=== PATIENT | male | born 1975 | race African-American/Black ===

== ENCOUNTER 2016-12-24 01:18 | Emergency (ER) | payer OTHER ==
[2016-12-24 01:32] VITALS: PULSE 88; TEMP 99.3; BMI 46.8
[2016-12-24] MEDS ORDERED: cloNIDine HCL 0.1 MG TABLET ONE (01:57)
[2016-12-24] MEDS ORDERED: cloNIDine HCL 0.1 MG TABLET PO ONE (01:57)
--- NOTE | 2016-12-24 02:01 | PDOC ---
History of Present Illness - General Stated Complaint: NUMBNESS FINGERS/FEET X 3 DAYS Time Seen by Provider: 12/24/16 01:20 - History of Present Illness Initial Comments: This 41-year-old man with a history of morbid obesity and untreated hypertension presents with a few day history of intermittent right arm and right leg numbness/tingling. Patient states that he has been told that he has high blood pressure by physicians for several years with prescription of antihypertensive medications being issued to him. The patient has never taken any of his antihypertensive medications, stating that he has believed in the past that he can control his blood pressure using diet and exercise. Over the last few days he is noted numbness/tingling sensation of his entire right arm and entire right leg lasting several minutes and r resolving spontaneously. These episodes can occur at any time and are not related to position or activity. He denies pain in either extremity or anywhere else on his body. He has not had chest pain or shortness of breath, he denies abdominal pain/nausea. Although the patient states that the right arm/right leg feel "" when the numbness/tingling occurs, he has not had any difficulty with ambulation. Patient states that he most recent appointment with his general medical doctor was in December 2015 (i.e. one year ago) Patient has also been told that he is prediabetic but has not received any medication for this. Strong family history of hypertension. Patient denies smoking, alcohol use, other recreational drug use. No known ALLERGIES Past History - Past Medical History Allergies/Adverse Reactions: Allergies Allergy/AdvReac Type Severity Reaction Status Date / Time No Known Allergies Allergy Verified 12/24/16 01:20 Home Medications: Ambulatory Orders Nifedipine [Nifedipine ER] 30 mg PO DAILY #10 tablet.er 12/24/16 Diabetes: Yes (PRE PER PT) - Psycho/Social/Smoking Cessation Hx Anxiety: No Suicidal Ideation: No Smoking History: Never smoked Have you smoked in the past 12 months: No Information on smoking cessation initiated: No Hx Alcohol Use: No Drug/Substance Use Hx: No Substance Use Type: None Review of Systems - Review of Systems Able to Perform ROS?: Yes Comments:: 12 point review of systems is negative except for what is noted in the history of present illness *Physical Exam - Vital Signs Last Vital Signs Temp Pulse Resp BP Pulse Ox 99.3 F 88 18 230/130 97 12/24/16 01:20 12/24/16 01:20 12/24/16 01:20 12/24/16 01:39 12/24/16 01:20 - Physical Exam Comments: GENERAL:Adult male, morbidly obese, alert and oriented 3 in no acute distress HEAD: Normal with no signs of trauma. EYES: PERRLA, EOMI, sclera anicteric, conjunctiva clear. ENT: Ears normal, nares patent, oropharynx clear without exudates. Dry mucous membranes. NECK: Normal range of motion, supple without lymphadenopathy, JVD, or masses. LUNGS: Breath sounds equal, clear to auscultation bilaterally. No wheezes, and no crackles. HEART:Regular rate and rhythm, normal S1 and S2 without murmur, rub or gallop. ABDOMEN:.normal bowel sounds No guarding,tenderness or rebound.No masses No distention. EXTREMITIES: Normal range of motion, no edema. No clubbing or cyanosis. No erythema, or tenderness. Strongly palpable pulse bilateral radial arteries at the wrist; distal extremities warm and dry with excellent capillary refill Strongly palpable pulse bilateral temporal arteries NEUROLOGICAL: Cranial nerves II through XII grossly intact. Normal speech. Normal gait; no pronator drift No sensory deficits evident MUSCULOSKELETAL: Back non-tender to palpation, no CVA tenderness SKIN: Warm, Dry, normal turgor, no rashes or lesions noted. ED Treatment Course - ADDITIONAL ORDERS Additional order review: Laboratory Results 12/24/16 01:32 POC Glucometer [id number] 12/24/16 01:32 POC Glucometer [id number] Medical Decision Making - Medical Decision Making 12/24/16 02:15 Clonidine 0.2 mg by mouth administered at 01: 58 Although the patient has no neurologic deficit on exam, because of his untreated hypertension and new intermittent neurologic symptoms, noncontrast head CT performed to evaluate for acute intracranial bleed or other process. CT interpreted by Imaging architecture consultant Other than evidence for possible chronic sinusitis, no acute abnormality seen on noncontrast head CT. 12/24/16 03:19 Results discussed with the patient. Since he possibly has had severe hypertension for months (last time pressure was checked was 1 year ago), lowering of blood pressure will be gradual. Approximately 1 hour 15 minutes after clonidine 0.2 milligrams administered, systolic blood pressure has dropped approximately 30 mmHg and diastolic has lowered approximately 10 mmHg. Although this BP is far from ideal, more rapid lowering of blood pressure is not advised. The patient has been strongly advised to follow-up with his general medical doctor (practices in the [place]). Patient states that he does not need a referral for a new doctor and he will follow-up since he is concerned that he is now having some symptoms. He states he has made an appointment with his general medical doctor for ThursdayDecember 30. Patient has been advised to call the office tomorrow and explain that he has been seen in the ER with new symptoms (and to request that the appointment be made sooner than the ) Meanwhile, nifedipine ER 30 mg daily will be prescribed. He should not work tomorrow; next scheduled work day is October 28. He should return here or see nearest ER if he experiences persistent limb weakness/numbness, chest pain, shortness of breath, severe headache *DC/Admit/Observation/Transfer Diagnosis at time of Disposition: Hypertension Qualifiers: Hypertension type: essential hypertension Qualified Code(s): I10 - Essential ( primary) hypertension Peripheral neuropathy Qualifiers: Peripheral neuropathy type: polyneuropathy, unspecified Qualified Code(s): G62.9 - Polyneuropathy, unspecified - Discharge Dispostion Disposition: HOME Condition at time of disposition: Stable - Prescriptions Prescriptions: Nifedipine [Nifedipine ER] 30 mg PO DAILY #10 tablet.er - Patient Instructions Printed Discharge Instructions: Peripheral Neuropathy, High Blood Pressure Additional Instructions: Nifedipine ER 30 mg daily until seen by your doctor No work tomorrow Call your doctor's office tomorrow as discussed If appointment cannot be moved up, see MD on December 30 as scheduled Follow-up with neurology appointment as per your general doctor Return here or see nearest medical facility if you have severe headache/ persistent numbness/weakness/chest pain - Post Discharge Activity Work/School Note: Back to Work
[2016-12-24 03:12] VITALS: BP 202/123
== END 2016-12-24 03:15 | disposition home or self-care (01) ==
LOC: FER 01:18
DX: I10 Essential (primary) hypertension (principal); G62.9 Polyneuropathy, unspecified; E66.01 Morbid (severe) obesity due to excess calories; Z68.42 Body mass index [BMI] 45.0-49.9, adult
CPT/HCPCS: 70450-TC; 99281-25

== ENCOUNTER 2017-09-21 11:41 | Emergency (ER) | payer OTHER ==
[2017-09-21 11:53] VITALS: TEMP 98
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
[2017-09-21] MEDS ORDERED: LABETALOL HCL 200 MG TABLET (FP) PO ONE (12:15)
[2017-09-21 13:31] VITALS: BP 191/104; PULSE 69
== END 2017-09-21 13:59 | disposition home or self-care (01) ==
LOC: FER 11:41
DX: F41.9 Anxiety disorder, unspecified (principal); I10 Essential (primary) hypertension
CPT/HCPCS: 99282-25

== ENCOUNTER 2017-11-13 12:37 | Emergency (ER) | payer OTHER ==
[2017-11-13 12:42] VITALS: TEMP 98.9; BMI 41.5
[2017-11-13] MEDS ORDERED: LABETALOL HCL 200 MG TABLET (FP) PO ONE (12:45)
[2017-11-13] MEDS ORDERED: HYDROCHLOROTHIAZIDE 25 MG TABLET (FP) ONE (13:01)
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
[2017-11-13] MEDS ORDERED: ACETAMINOPHEN 500 MG TABLET (FP) ONE (13:14)
[2017-11-13] MEDS ORDERED: ACETAMINOPHEN 500 MG TABLET (FP) PO ONE (13:16)
[2017-11-13 16:20] VITALS: BP 178/81; PULSE 79
[2017-11-14] MEDS ORDERED: HYDROCHLOROTHIAZIDE 12.5 MG CAPSULE (FP) PO ONE (12:46)
== END 2017-11-13 16:15 | disposition home or self-care (01) ==
LOC: FER 12:37
DX: I10 Essential (primary) hypertension (principal); R73.03 Prediabetes; E66.9 Obesity, unspecified; Z68.41 Body mass index [BMI] 40.0-44.9, adult; Z91.14 Patient's other noncompliance with medication regimen
CPT/HCPCS: 70450-TC; 99283-25

== ENCOUNTER 2019-11-22 09:57 | Inpatient (IN) | payer OTHER ==
[2019-11-22] MEDS ORDERED: ACETAMINOPHEN 500 MG TABLET (FP) ONE (10:10)
[2019-11-22] MEDS ORDERED: ACETAMINOPHEN 500 MG TABLET (FP) PO ONE ×2 (10:12→10:27)
[2019-11-22 10:27] VITALS: BMI 44.4
[2019-11-22 12:05] LABS: BASO % 0.1 % (0-2.0); EOS % 0.1 % (0-4.5); HEMATOCRIT 49.6 % (35.4-49); HEMOGLOBIN 16.3 GM/dl (11.7-16.9); LYMPH % 13.7 % (8-40); MCH 29.8 pg (25.7-33.7); MCHC 32.8 g/dl (32.0-35.9); MEAN CELL VOLUME 90.7 fl (80-96); MEAN PLT VOLUME 11.5 fl (7.5-11.1); MONO % 11.1 % (3.8-10.2); PLATELET COUNT 98 K/MM3 (134-434); RBC 5.47 M/mm3 (4.00-5.60); RDW 11.9 % (11.9-15.9); WHITE BLOOD COUNT 6.3 K/mm3 (4.0-10.8)
[2019-11-22 12:16] LABS: ALBUMIN 3.3 g/dl (3.4-5.0); BILIRUBIN,DIRECT 0.4 mg/dL (0.0-0.2); BILIRUBIN,TOTAL 1.6 mg/dl (0.2-1); CALCIUM 8.2 mg/dl (8.5-10); CREATININE 1.9 mg/dl (0.55-1.3); POTASSIUM 3.2 mmol/L (3.5-5.1); TOT PROT 7.6 g/dl (6.4-8.2)
[2019-11-22 12:26] LABS: ACTIVATED PTT 31.6 SECONDS (25.2-36.5)
[2019-11-22] MEDS ORDERED: ASPIRIN 81 MG CHEWABLE TABLETS PO ONE (12:28)
[2019-11-22 12:31] LABS: INR 1.42 (0.82-1.09); PROTHROMBIN TIME (PATIENT) 15.8 SEC (10.2-13.0)
[2019-11-22] MEDS ORDERED: SODIUM CHLORIDE 500 ML IV STA (12:31)
[2019-11-22] MEDS ORDERED: ASPIRIN 81 MG CHEWABLE TABLETS ONE (12:33)
[2019-11-22] MEDS ORDERED: ATORVASTATIN CA 20 MG TABLET (FP) PO ONE (12:45)
[2019-11-22] MEDS ORDERED: HEPARIN INFUSION - 25,000 UNITS/500 ML INFUS.BAG IVPB SCH (12:45)
[2019-11-22] MEDS ORDERED: CLOPIDOGREL BISULFATE 300 MG TABLET PO ONE (12:45)
[2019-11-22] MEDS ORDERED: HEPARIN NA (PORCINE) 5,000 UNITS/ML 1ML VIAL IVPUSH PRN ×2 (12:45)
[2019-11-22] MEDS ORDERED: HEPARIN NA (PORCINE) 5,000 UNITS/ML 1ML VIAL IVPUSH ONE (13:09)
[2019-11-22] MEDS ORDERED: ATORVASTATIN CA 20 MG TABLET (FP) ONE (13:15)
[2019-11-22] MEDS ORDERED: HEPARIN NA (PORCINE) 5,000 UNITS/ML 1ML VIAL ONE (13:15)
[2019-11-22] MEDS ORDERED: LABETALOL HCL 5 MG/1 ML (100MG/20 ML VIAL) IVPUSH ONE ×2 (13:15→21:14)
[2019-11-22] MEDS ORDERED: LABETALOL HCL 5 MG/1 ML (100MG/20 ML VIAL) ONE (13:15)
[2019-11-22] MEDS ORDERED: CLOPIDOGREL BISULFATE 300 MG TABLET ONE (13:15)
[2019-11-22] MEDS ORDERED: HEPARIN INFUSION - 25,000 UNITS/500 ML INFUS.BAG IVPB ONE (13:15)
[2019-11-22] MEDS ORDERED: ACETAMINOPHEN 325 MG TABLET (FP) PO PRN (21:15)
[2019-11-22] MEDS ORDERED: ALBUTEROL SO4 HFA INHALER IH PRN (22:10)
[2019-11-22] MEDS ORDERED: guaiFENesin/D-M SUGAR-FREE/ACLHOL-FREE 118 ML BOTTLE PO PRN (22:10)
[2019-11-22] MEDS ORDERED: BENZOCAINE/MENTH/CETYLPYRD CL 1 EACH LOZENGE MM PRN (22:10)
[2019-11-22] MEDS ORDERED: AZITHROMYCIN 250 MG TABLET PO ONE (22:15)
[2019-11-22] MEDS: KCL 10 MEQ IVPB 10 MEQ/100 ML INFUS.BAG IVPB SCH (23:38)
[2019-11-22] MEDS ORDERED: NITROGLYCERIN SUBLINGUAL 1/150 0.4 MG TAB SL PRN (23:45)
[2019-11-22] MEDS ORDERED: LISINOPRIL 5 MG TABLET PO ONE (23:52)
[2019-11-23] MEDS: KCL 10 MEQ IVPB 10 MEQ/100 ML INFUS.BAG IVPB SCH ×2 (04:10→07:00)
[2019-11-23] MEDS ORDERED: CARVEDILOL 25 MG TABLET (FP) PO ONE (04:28)
[2019-11-23] MEDS ORDERED: amLODIPine BESYLATE 10 MG TABLET (FP) PO ONE (04:29)
[2019-11-23 07:47] LABS: HEMATOCRIT 43.9 % (35.4-49); HEMOGLOBIN 15.2 GM/dL (11.7-16.9); MCH 31.1 pg (25.7-33.7); MCHC 34.6 g/dl (32.0-35.9); MEAN CELL VOLUME 90.1 fl (80-96); MEAN PLT VOLUME 10.4 fl (7.5-11.1); PLATELET COUNT 98 K/MM3 (134-434); RBC 4.87 M/mm3 (4.00-5.60); RDW 13.2 % (11.9-15.9)
[2019-11-23 08:01] LABS: WHITE BLOOD COUNT 14.2 K/mm3 (4.0-10.0)
[2019-11-23 08:04] LABS: INR 1.53 (0.83-1.09); PROTHROMBIN TIME (PATIENT) 18.1 SEC (9.7-13.0)
[2019-11-23 09:42] LABS: ALBUMIN 2.5 g/dl (3.4-5.0); ALK PHOS 35 U/L (45-117); ANION GAP 13 MMOL/L (8-16); BILIRUBIN,TOTAL 1.1 mg/dL (0.2-1); BLOOD UREA NITROGEN 44.4 mg/dL (7-18); CALCIUM 7.3 mg/dL (8.5-10.1); CHLORIDE 95 mmol/L (98-107); CHOLESTEROL 88 mg/dL (50-200); CO2 24 mmol/L (21-32); CREATININE 2.4 mg/dL (0.55-1.3); GLUCOSE,RANDOM 110 mg/dL (74-106); HDL CHOLESTEROL 26 mg/dL (40-60); LDH 950 U/L (87-246); LDL CHOLESTEROL (ONLY SJRH) 54 mg/dL (5-100); MAGNESIUM 2.2 mg/dL (1.8-2.4); PHOSPHOROUS 5.5 mg/dL (2.5-4.9); POTASSIUM 4.7 mmol/L (3.5-5.1); SGOT/AST 165 U/L (15-37); SGPT/ALT 77 U/L (13-61); SODIUM 132 mmol/L (136-145); TOT PROT 6.9 g/dl (6.4-8.2); TRIGLYCERIDES 92 mg/dL (0-150)
[2019-11-23] MEDS ORDERED: CARVEDILOL 12.5 MG TABLET (FP) PO SCH ×2 (10:00)
[2019-11-23] MEDS ORDERED: HYDROXYCHLOROQUINE SO4 200 MG TABLET (FP) PO SCH ×4 (10:00→22:00)
[2019-11-23] MEDS ORDERED: LISINOPRIL 5 MG TABLET PO SCH (10:00)
[2019-11-23] MEDS: CARVEDILOL 12.5 MG TABLET (FP) PO SCH (10:01)
[2019-11-23] MEDS: CLOPIDOGREL BISULFATE 75 MG TABLET (FP) PO SCH (10:01)
[2019-11-23] MEDS: ISOSORBIDE MONONITRATE 30 MG TAB.SR.24H (FP) PO SCH (10:02)
[2019-11-23] MEDS: ASPIRIN 81 MG CHEWABLE TABLETS PO SCH (10:03)
[2019-11-23 11:08] LABS: ACTIVATED PTT 98.2 SECONDS (25.2-36.5)
[2019-11-23] MEDS ORDERED: SODIUM CHLORIDE 250 ML IV STA (11:46)
[2019-11-23] MEDS ORDERED: HEPARIN NA (PORCINE) 5,000 UNITS/ML 1ML VIAL SQ SCH (14:00)
[2019-11-23] MEDS ORDERED: DEXTROSE 5%-WATER - 1,000 ML IV SCH ×2 (14:00→14:03)
[2019-11-23 14:28] LABS: ANISOCYTOSIS 0; MACROCYTOSIS 0; PLATELET ESTIMATE DECREASED
[2019-11-23] MEDS: ZINC SULFATE 220 MG CAPSULE (FP) PO SCH ×2 (14:55→23:12)
[2019-11-23] MEDS: ASCORBIC ACID 500 MG TABLET (FP) PO SCH ×2 (14:56→23:12)
[2019-11-23] MEDS ORDERED: SUCCINYLCHOLINE CHLORIDE 200 MG/10 ML VIAL IVPUSH ONE (15:44)
[2019-11-23] MEDS ORDERED: PROPOFOL 200 MG/20 ML VIAL IVPUSH ONE (15:44)
[2019-11-23] MEDS ORDERED: PROPOFOL 1,000,000 MCG/100 ML VIAL ONE (16:13)
[2019-11-23] MEDS ORDERED: fentaNYL CITRATE 250 MCG/5 ML VIAL ONE ×2 (16:21→20:38)
[2019-11-23] MEDS ORDERED: MIDAZOLAM IN 0.9 % SOD.CHLORID 1 MG/1 ML PLAST..BAG ONE (16:37)
[2019-11-23] MEDS ORDERED: SODIUM CHLORIDE 0.45% 1,000 ML IV SCH (16:45)
[2019-11-23] MEDS: PROPOFOL 1,000,000 MCG/100 ML VIAL IVPB SCH (17:30)
[2019-11-23] MEDS: MIDAZOLAM IN 0.9 % SOD.CHLORID 100 MG/100 ML PLAST..BAG IVPB SCH (17:31)
[2019-11-23] MEDS ORDERED: DEXTROSE 5%-WATER 100 ML IVPB ONE (18:11)
[2019-11-23 18:19] LABS: ARTERIAL BLD GAS O2 SATURATION 98.7 % (95-98); ARTERIAL BLOOD GAS BASE EXCESS 2.7 mmol/L (-2-2); ARTERIAL BLOOD GAS PCO2 54.6 mmHg (35-45); ARTERIAL BLOOD GAS PO2 198 mmHg (80-100); ARTERIAL BLOOD GAS pH 7.35 (7.35-7.45)
[2019-11-23 18:20] LABS: ALLENS TEST POSITIVE
[2019-11-23] MEDS: CEFTRIAXONE 2 GM in DEXTROSE 5%-WATER 100 ML IVPB SCH (19:24)
[2019-11-23] MEDS: MORPHINE SULFATE/0.9% NACL/PF 100 MG/100 ML BAG IVPB SCH (19:34)
[2019-11-23] MEDS ORDERED: FENTANYL IVPB 500 MCG/100 ML BAG IVPB SCH (19:45)
[2019-11-23 22:13] LABS: BLOOD UREA NITROGEN 53.6 mg/dL (7-18); CALCIUM 8.1 mg/dL (8.5-10.1); CREATININE 3.5 mg/dL (0.55-1.3); POTASSIUM 3.7 mmol/L (3.5-5.1)
[2019-11-23] MEDS: ATORVASTATIN CA 40 MG TABLET (FP) PO SCH (23:12)
[2019-11-23] MEDS: MUPIROCIN 2% TOPICAL OINTMENT FOR DECOLONIZATION NS SCH (23:12)
[2019-11-23] MEDS: CHLORHEXIDINE GLUCONATE 4% CLEANSER FOR DECOLONIZATION TP SCH (23:13)
[2019-11-24] MEDS: CARVEDILOL 12.5 MG TABLET (FP) PO SCH ×3 (00:23→21:12)
[2019-11-24] MEDS: HEPARIN NA (PORCINE) 5,000 UNITS/ML 1ML VIAL SQ SCH ×4 (00:24→21:13)
[2019-11-24] MEDS ORDERED: fentaNYL CITRATE 250 MCG/5 ML VIAL ONE ×3 (02:18→15:54)
[2019-11-24 08:01] LABS: ARTERIAL BLD GAS O2 SATURATION 98.8 % (95-98); ARTERIAL BLOOD GAS BASE EXCESS 1.3 mmol/L (-2-2); ARTERIAL BLOOD GAS PCO2 50.1 mmHg (35-45); ARTERIAL BLOOD GAS PO2 185 mmHg (80-100); ARTERIAL BLOOD GAS pH 7.35 (7.35-7.45)
[2019-11-24 08:18] LABS: EPI CELLS 1 /uL (0-25.1); HYALINE CASTS 0 /uL (0-3.1); URINE APPEARANCE CLEAR; URINE BACTERIA 4 /uL (0-1359); URINE BILIRUBIN NEGATIVE (NEGATIVE); URINE COLOR DK YELLOW; URINE GLUCOSE (UA) NEGATIVE (NEGATIVE); URINE KETONE NEGATIVE (NEGATIVE); URINE LEUK ESTERASE NEGATIVE (NEGATIVE); URINE NITRITE NEGATIVE (NEGATIVE); URINE PROTEIN 2+ (NEGATIVE); URINE RBC 9 /uL (0-23.9); URINE UROBILINOGEN 0.2 mg/dL (0.2-1.0); URINE WBC 0 /uL (0-25.8)
[2019-11-24] MEDS ORDERED: DEXTROSE 5%-WATER 100 ML IVPB ONE (08:40)
[2019-11-24] MEDS: ZINC SULFATE 220 MG CAPSULE (FP) PO SCH ×2 (10:58→21:14)
[2019-11-24] MEDS: HYDROXYCHLOROQUINE SO4 200 MG TABLET (FP) PO SCH ×2 (10:59→21:14)
[2019-11-24] MEDS: ISOSORBIDE MONONITRATE 30 MG TAB.SR.24H (FP) PO SCH (10:59)
[2019-11-24] MEDS: CLOPIDOGREL BISULFATE 75 MG TABLET (FP) PO SCH (10:59)
[2019-11-24] MEDS: CEFTRIAXONE 2 GM in DEXTROSE 5%-WATER 100 ML IVPB SCH (11:01)
[2019-11-24] MEDS: ASCORBIC ACID 500 MG TABLET (FP) PO SCH ×2 (11:02→21:14)
[2019-11-24] MEDS: ASPIRIN 81 MG CHEWABLE TABLETS PO SCH (11:02)
[2019-11-24] MEDS ORDERED: ACETAMINOPHEN 1000 MG/100 ML VIAL (NON FORMULARY) IVPB ONE (12:45)
[2019-11-24] MEDS: MUPIROCIN 2% TOPICAL OINTMENT FOR DECOLONIZATION NS SCH ×2 (13:19→21:12)
[2019-11-24] MEDS: LACTATED RINGERS SOLUTION 1,000 ML/1,000 ML INFUS.BAG IV SCH (15:27)
[2019-11-24] MEDS ORDERED: PROPOFOL 1,000,000 MCG/100 ML VIAL ONE (15:54)
[2019-11-24 16:05] LABS: BASO % 0.3 % (0-2.0); HEMATOCRIT 42.1 % (35.4-49); HEMOGLOBIN 14.1 GM/dL (11.7-16.9); LYMPH % 10.5 % (8-40); MCH 30.6 pg (25.7-33.7); MCHC 33.5 g/dl (32.0-35.9); MEAN CELL VOLUME 91.5 fl (80-96); MONO % 8.8 % (3.8-10.2); NEUT % 80.4 % (42.8-82.8); PLATELET COUNT 163 K/MM3 (134-434); RDW 13.2 % (11.9-15.9); WHITE BLOOD COUNT 9.9 K/mm3 (4.0-10.0)
[2019-11-24 16:38] LABS: ALBUMIN 2.4 g/dl (3.4-5.0); BILIRUBIN,TOTAL 0.4 mg/dL (0.2-1); BLOOD UREA NITROGEN 72.2 mg/dL (7-18); CALCIUM 8.1 mg/dL (8.5-10.1); CREATININE 6.6 mg/dL (0.55-1.3); MAGNESIUM 2.8 mg/dL (1.8-2.4); PHOSPHOROUS 8.9 mg/dL (2.5-4.9); POTASSIUM 3.6 mmol/L (3.5-5.1); TOT PROT 6.5 g/dl (6.4-8.2)
[2019-11-24] MEDS: PROPOFOL 1,000,000 MCG/100 ML VIAL IVPB SCH (20:00)
[2019-11-24] MEDS: MIDAZOLAM IN 0.9 % SOD.CHLORID 100 MG/100 ML PLAST..BAG IVPB SCH (21:12)
[2019-11-24] MEDS: CHLORHEXIDINE GLUCONATE 4% CLEANSER FOR DECOLONIZATION TP SCH (21:13)
[2019-11-24] MEDS: ATORVASTATIN CA 40 MG TABLET (FP) PO SCH (21:13)
[2019-11-25] MEDS ORDERED: ACETAMINOPHEN 650 MG/20.3 ML ORAL SOLUTION (CUPS) PO ONE (04:03)
[2019-11-25] MEDS: PROPOFOL 1,000,000 MCG/100 ML VIAL IVPB SCH ×3 (05:00→15:55)
[2019-11-25] MEDS: MIDAZOLAM IN 0.9 % SOD.CHLORID 100 MG/100 ML PLAST..BAG IVPB SCH (05:00)
[2019-11-25] MEDS: MORPHINE SULFATE/0.9% NACL/PF 100 MG/100 ML BAG IVPB SCH ×4 (05:00→16:41)
[2019-11-25] MEDS: HEPARIN NA (PORCINE) 5,000 UNITS/ML 1ML VIAL SQ SCH (06:00)
[2019-11-25 06:19] LABS: ARTERIAL BLD GAS O2 SATURATION 98.4 % (95-98); ARTERIAL BLOOD GAS BASE EXCESS -0.2 mmol/L (-2-2); ARTERIAL BLOOD GAS PCO2 54.8 mmHg (35-45); ARTERIAL BLOOD GAS PO2 178 mmHg (80-100); ARTERIAL BLOOD GAS pH 7.32 (7.35-7.45)
[2019-11-25 06:20] LABS: ALLENS TEST POSITIVE
[2019-11-25 08:18] LABS: ALBUMIN 2.2 g/dl (3.4-5.0); BILIRUBIN,TOTAL 0.5 mg/dL (0.2-1); BLOOD UREA NITROGEN 82.7 mg/dL (7-18); CALCIUM 7.9 mg/dL (8.5-10.1); MAGNESIUM 2.7 mg/dL (1.8-2.4); POTASSIUM 3.8 mmol/L (3.5-5.1); TOT PROT 6.4 g/dl (6.4-8.2)
[2019-11-25 08:32] LABS: HEMATOCRIT 39.1 % (35.4-49); HEMOGLOBIN 13.5 GM/dL (11.7-16.9); MCH 31.6 pg (25.7-33.7); MCHC 34.4 g/dl (32.0-35.9); MEAN CELL VOLUME 91.7 fl (80-96); MEAN PLT VOLUME 10.7 fl (7.5-11.1); PLATELET COUNT 169 K/MM3 (134-434); RBC 4.26 M/mm3 (4.00-5.60); RDW 13.2 % (11.9-15.9); WHITE BLOOD COUNT 10.9 K/mm3 (4.0-10.0)
[2019-11-25] MEDS ORDERED: DEXTROSE 5%-WATER 100 ML IVPB ONE (09:24)
[2019-11-25] MEDS: ZINC SULFATE 220 MG CAPSULE (FP) PO SCH ×2 (09:32→21:48)
[2019-11-25] MEDS: ASCORBIC ACID 500 MG TABLET (FP) PO SCH ×2 (09:32→21:48)
[2019-11-25] MEDS: ASPIRIN 81 MG CHEWABLE TABLETS PO SCH (09:32)
[2019-11-25] MEDS: CLOPIDOGREL BISULFATE 75 MG TABLET (FP) PO SCH (09:32)
[2019-11-25] MEDS: ISOSORBIDE MONONITRATE 30 MG TAB.SR.24H (FP) PO SCH (09:33)
[2019-11-25] MEDS: CEFTRIAXONE 2 GM in DEXTROSE 5%-WATER 100 ML IVPB SCH (09:33)
[2019-11-25] MEDS: CARVEDILOL 12.5 MG TABLET (FP) PO SCH ×2 (09:33→21:47)
[2019-11-25] MEDS: MUPIROCIN 2% TOPICAL OINTMENT FOR DECOLONIZATION NS SCH ×2 (09:33→21:46)
[2019-11-25 09:43] LABS: CREATININE 8.6 mg/dL (0.55-1.3); PHOSPHOROUS 9.4 mg/dL (2.5-4.9)
[2019-11-25] MEDS: HYDROXYCHLOROQUINE 200 MG/8 ML ORAL SUSPENSION PO SCH ×2 (09:43→21:48)
[2019-11-25] MEDS: LACTATED RINGERS SOLUTION 1,000 ML/1,000 ML INFUS.BAG IV SCH ×3 (13:35→19:09)
[2019-11-25] MEDS: ACETAMINOPHEN 650 MG/20.3 ML ORAL SOLUTION (CUPS) PO PRN (16:45)
[2019-11-25] MEDS ORDERED: PT OWN MED DRAWER 7, Y5N ONE (21:42)
[2019-11-25] MEDS: APIXABAN 5 MG TABLET PO SCH (21:47)
[2019-11-25] MEDS: CHLORHEXIDINE GLUCONATE 4% CLEANSER FOR DECOLONIZATION TP SCH (21:48)
[2019-11-25] MEDS: ATORVASTATIN CA 40 MG TABLET (FP) PO SCH (21:48)
[2019-11-25] MEDS: NOREPINEPHRINE D5W PREMIX 16,000 MCG/500 ML BAG IVPB SCH (22:00)
[2019-11-26] MEDS: ACETAMINOPHEN 650 MG/20.3 ML ORAL SOLUTION (CUPS) PO PRN ×3 (06:15→18:18)
[2019-11-26 07:30] LABS: BASO % 0.2 % (0-2.0); HEMATOCRIT 37.5 % (35.4-49); HEMOGLOBIN 12.3 GM/dL (11.7-16.9); LYMPH % 7.7 % (8-40); MCH 30.2 pg (25.7-33.7); MCHC 32.8 g/dl (32.0-35.9); MEAN PLT VOLUME 9.8 fl (7.5-11.1); MONO % 10.5 % (3.8-10.2); NEUT % 81.6 % (42.8-82.8); PLATELET COUNT 207 K/MM3 (134-434); RBC 4.07 M/mm3 (4.00-5.60); RDW 13.3 % (11.9-15.9); WHITE BLOOD COUNT 13.5 K/mm3 (4.0-10.0)
[2019-11-26 08:07] LABS: ALK PHOS 37 U/L (45-117); ANION GAP 15 MMOL/L (8-16); BILIRUBIN,TOTAL 0.5 mg/dL (0.2-1); CHLORIDE 93 mmol/L (98-107); CO2 25 mmol/L (21-32); GLUCOSE,RANDOM 94 mg/dL (74-106); POTASSIUM 4.3 mmol/L (3.5-5.1); SGOT/AST 132 U/L (15-37); SGPT/ALT 53 U/L (13-61); SODIUM 133 mmol/L (136-145); TOT PROT 6.3 g/dl (6.4-8.2)
[2019-11-26] MEDS ORDERED: POTASSIUM CHLORIDE ORAL LIQUID 20 MEQ/15 ML PO ONE (08:45)
[2019-11-26 09:12] LABS: BLOOD UREA NITROGEN 116.1 mg/dL (7-18)
[2019-11-26 09:13] LABS: CREATININE 12.3 mg/dL (0.55-1.3); PHOSPHOROUS > 9.0 mg/dL (2.5-4.9)
[2019-11-26] MEDS ORDERED: DEXTROSE 5%-WATER 100 ML IVPB ONE (09:15)
[2019-11-26] MEDS: ASPIRIN 81 MG CHEWABLE TABLETS PO SCH (09:24)
[2019-11-26] MEDS: ASCORBIC ACID 500 MG TABLET (FP) PO SCH ×2 (09:24→21:24)
[2019-11-26] MEDS: MUPIROCIN 2% TOPICAL OINTMENT FOR DECOLONIZATION NS SCH ×2 (09:25→21:23)
[2019-11-26] MEDS: CARVEDILOL 12.5 MG TABLET (FP) PO SCH ×2 (09:25→21:23)
[2019-11-26] MEDS: ZINC SULFATE 220 MG CAPSULE (FP) PO SCH ×2 (09:26→22:02)
[2019-11-26] MEDS: ISOSORBIDE MONONITRATE 30 MG TAB.SR.24H (FP) PO SCH (09:26)
[2019-11-26] MEDS: CEFTRIAXONE 2 GM in DEXTROSE 5%-WATER 100 ML IVPB SCH (09:27)
[2019-11-26] MEDS: APIXABAN 5 MG TABLET PO SCH ×2 (09:31→21:23)
[2019-11-26] MEDS: HYDROXYCHLOROQUINE 200 MG/8 ML ORAL SUSPENSION PO SCH ×2 (09:31→21:24)
[2019-11-26] MEDS: PROPOFOL 1,000,000 MCG/100 ML VIAL IVPB SCH ×2 (11:07→15:53)
[2019-11-26] MEDS: LACTATED RINGERS SOLUTION 1,000 ML/1,000 ML INFUS.BAG IV SCH ×2 (12:24→19:02)
[2019-11-26] MEDS ORDERED: SEVELAMER CARBONATE 0.8 GM POWDER PACKET PO ONE (15:06)
[2019-11-26] MEDS ORDERED: PANTOPRAZOLE SODIUM 40 MG VIAL IVPUSH SCH (15:15)
[2019-11-26] MEDS: MORPHINE SULFATE/0.9% NACL/PF 100 MG/100 ML BAG IVPB SCH (16:28)
[2019-11-26] MEDS: NOREPINEPHRINE D5W PREMIX 16,000 MCG/500 ML BAG IVPB SCH (18:31)
[2019-11-26] MEDS ORDERED: ACETAMINOPHEN 1000 MG/100 ML VIAL (NON FORMULARY) IVPB ONE (18:34)
[2019-11-26] MEDS: CHLORHEXIDINE GLUCONATE 4% CLEANSER FOR DECOLONIZATION TP SCH (21:23)
[2019-11-26] MEDS: ATORVASTATIN CA 40 MG TABLET (FP) PO SCH (21:24)
[2019-11-27] MEDS: ACETAMINOPHEN 650 MG/20.3 ML ORAL SOLUTION (CUPS) PO PRN ×2 (01:54→21:24)
[2019-11-27 07:18] LABS: HEMATOCRIT 37.4 % (35.4-49); MCH 30.1 pg (25.7-33.7); MCHC 32.1 g/dl (32.0-35.9); MEAN CELL VOLUME 93.7 fl (80-96); MEAN PLT VOLUME 10.1 fl (7.5-11.1); PLATELET COUNT 240 K/MM3 (134-434); RBC 3.99 M/mm3 (4.00-5.60); RDW 13.4 % (11.9-15.9); WHITE BLOOD COUNT 20.5 K/mm3 (4.0-10.0)
[2019-11-27] MEDS ORDERED: DEXTROSE 5%-LACTATED RINGERS 1,000 ML IV SCH (09:30)
[2019-11-27] MEDS ORDERED: PANTOPRAZOLE 40 MG TABLET PO SCH (10:00)
[2019-11-27 10:02] LABS: ALBUMIN 1.6 g/dl (3.4-5.0); BILIRUBIN,TOTAL 0.9 mg/dL (0.2-1); CALCIUM 7.9 mg/dL (8.5-10.1); POTASSIUM 4.8 mmol/L (3.5-5.1); TOT PROT 5.8 g/dl (6.4-8.2)
[2019-11-27 10:11] LABS: BLOOD UREA NITROGEN 148.9 mg/dL (7-18)
[2019-11-27 10:12] LABS: CREATININE 17.2 mg/dL (0.55-1.3)
[2019-11-27] MEDS ORDERED: DEXTROSE 5%-WATER 100 ML IVPB ONE (10:36)
[2019-11-27 11:00] LABS: ARTERIAL BLD GAS O2 SATURATION 88.4 % (95-98); ARTERIAL BLOOD GAS PCO2 66.1 mmHg (35-45)
[2019-11-27 11:03] LABS: ALLENS TEST POSITIVE; ARTERIAL BLOOD GAS pH 7.15 (7.35-7.45)
[2019-11-27] MEDS: HYDROXYCHLOROQUINE 200 MG/8 ML ORAL SUSPENSION PO SCH ×2 (11:37→21:21)
[2019-11-27] MEDS: ZINC SULFATE 220 MG CAPSULE (FP) PO SCH ×3 (11:37→22:22)
[2019-11-27] MEDS: CARVEDILOL 12.5 MG TABLET (FP) PO SCH (11:38)
[2019-11-27] MEDS: CEFTRIAXONE 2 GM in DEXTROSE 5%-WATER 100 ML IVPB SCH (11:39)
[2019-11-27] MEDS: ASCORBIC ACID 500 MG TABLET (FP) PO SCH ×3 (11:39→22:22)
[2019-11-27] MEDS: APIXABAN 5 MG TABLET PO SCH ×3 (11:39→22:21)
[2019-11-27] MEDS: SODIUM BICARBONATE 8.4% 50 MEQ/50 ML VIAL IV SCH ×4 (11:39→22:22)
[2019-11-27] MEDS: MUPIROCIN 2% TOPICAL OINTMENT FOR DECOLONIZATION NS SCH ×2 (11:40→21:21)
[2019-11-27] MEDS: DEXAMETHASONE SOD PHOSPHATE 10 MG/1 ML VIAL IVPUSH SCH ×2 (11:40→15:20)
[2019-11-27] MEDS: ISOSORBIDE MONONITRATE 30 MG TAB.SR.24H (FP) PO SCH (11:44)
[2019-11-27] MEDS: CALCIUM ACETATE 667 MG CAPSULE (FP) PO SCH ×2 (12:40→17:25)
[2019-11-27] MEDS ORDERED: SODIUM CHLORIDE IV SCH (17:00)
[2019-11-27] MEDS ORDERED: FLUDROCORTISONE ACETATE 0.1 MG TABLET (FP) PO SCH (17:00)
[2019-11-27] MEDS ORDERED: PHENYLEPHRINE HCL IV SCH (17:00)
[2019-11-27] MEDS ORDERED: PHENYLEPHRINE HCL 10 MG/1 ML SINGLE DOSE VIAL ONE (17:03)
[2019-11-27] MEDS ORDERED: CALCIUM GLUCONATE 10% - 1,000 MG/10 ML VIAL ONE (17:10)
[2019-11-27] MEDS: PROPOFOL 1,000,000 MCG/100 ML VIAL IVPB SCH ×3 (17:26→20:26)
[2019-11-27] MEDS: MORPHINE SULFATE/0.9% NACL/PF 100 MG/100 ML BAG IVPB SCH ×2 (17:27)
[2019-11-27] MEDS: HYDROCORTISONE SOD SUCCINATE 100 MG/2 ML VIAL IVPB SCH ×2 (17:27→21:20)
[2019-11-27] MEDS: VASOPRESSIN 40 UNITS in SODIUM CHLORIDE 98 ML IVPB SCH ×2 (17:30→22:19)
[2019-11-27] MEDS ORDERED: NOREPINEPHRINE BITARTRATE 8,000 MCG/500 ML BAG IVPB ONE (20:09)
[2019-11-27] MEDS ORDERED: PT OWN MED DRAWER 7, Y5N ONE (20:21)
[2019-11-27] MEDS: NOREPINEPHRINE D5W PREMIX 16,000 MCG/500 ML BAG IVPB SCH ×2 (20:24→21:14)
[2019-11-27] MEDS: LACTATED RINGERS SOLUTION 1,000 ML/1,000 ML INFUS.BAG IV SCH (21:19)
[2019-11-27] MEDS: ATORVASTATIN CA 40 MG TABLET (FP) PO SCH ×2 (21:21→22:21)
[2019-11-27] MEDS: CHLORHEXIDINE GLUCONATE 4% CLEANSER FOR DECOLONIZATION TP SCH (21:21)
[2019-11-27] MEDS ORDERED: ACETAMINOPHEN 1000 MG/100 ML VIAL (NON FORMULARY) IVPB PRN (21:49)
[2019-11-27] MEDS ORDERED: VASOPRESSIN 20 UNITS/ML VIAL IV ONE (22:03)
[2019-11-28] MEDS: PROPOFOL 1,000,000 MCG/100 ML VIAL IVPB SCH (00:15)
[2019-11-28 01:32] VITALS: BP 97/51; PULSE 54; TEMP 106.4
[2019-11-28] MEDS ORDERED: CALCIUM GLUCONATE 10% - 1,000 MG/10 ML VIAL ONE (02:09)
== END 2019-11-28 04:52 | disposition expired | DRG 870 ==
LOC: FER 09:57 → J4W 19:29 → JICU 11-23 15:47
PROVIDERS: ADMIT Internal Medicine; ATTEND Internal Medicine Pulmonary Disease
PROC: 5A1955Z Respiratory Ventilation, Greater than 96 Consecutive Hours (ICD-10-PCS; principal; 2019-11-23)
PROC: 0BH17EZ Insertion of Endotracheal Airway into Trachea, Via Natural or Artificial Opening (ICD-10-PCS; 2019-11-23)
PROC: 02HV33Z Insertion of Infusion Device into Superior Vena Cava, Percutaneous Approach (ICD-10-PCS; 2019-11-23)
PROC: B548ZZA Ultrasonography of Superior Vena Cava, Guidance (ICD-10-PCS; 2019-11-23)
DX: A41.89 Other specified sepsis (principal); J96.01 Acute respiratory failure with hypoxia; U07.1 COVID-19; J96.02 Acute respiratory failure with hypercapnia; J12.89 Other viral pneumonia; N17.9 Acute kidney failure, unspecified; E87.1 Hypo-osmolality and hyponatremia; E87.2 Acidosis; I24.8 Other forms of acute ischemic heart disease; Z68.42 Body mass index [BMI] 45.0-49.9, adult; I10 Essential (primary) hypertension; R73.03 Prediabetes; F41.9 Anxiety disorder, unspecified; G62.9 Polyneuropathy, unspecified; E87.6 Hypokalemia; E66.01 Morbid (severe) obesity due to excess calories; D69.6 Thrombocytopenia, unspecified; E83.39 Other disorders of phosphorus metabolism
CPT/HCPCS: 36415; 36600; 71045-TC-FY; 76775-TC; 80048; 80053; 80061; 81003; 82248; 82436; 82550; 82553; 82565; 82728; 82803; 82962; 83036; 83605; 83615; 83721; 83735; 83930; 83935; 84100; 84133; 84156; 84300; 84443; 84484; 85025; 85027; 85379; 85610; 85730; 86140; 87040; 87899; 93005; 94002; 99285-25; J0131; J1100; J1644; U0002